=== PATIENT | male | born 1930 | race Caucasian/White ===

== ENCOUNTER 2016-12-28 17:26 | Inpatient (IN) | payer OTHER, MEDICARE ==
[~2016-12-28] VITALS: Ht 180.3 cm; Wt 85.5 kg
[~2016-12-28 17:26] MED LIST: ADVIL,NUPRIN,M200 MG PO; ALPRAZOLAM0.5 MG PO; AMBIEN5 MG PO; AMIODARONE HCL200 MG PO; ASPIR 8181 M1 PO; ASPIR-LOW81 MG PO; ATORVASTATIN CA40 MG PO; B COMPLETE1 EACH PO; CHILD ASPIRIN81 M1 PO; CO Q-1010 MG PO; COLACE100 MG PO; ELIQUIS5 MG PO; ESZOPICLONE3 MG PO; FLEXERIL10 MG PO; HYDROCODON-ACE1 EAC7 PO; HYZAAR 100-11 TABLET PO; KEFLEX500 MG PO; LEVAQUIN750 MG PO; LIPITOR40 MG PO; LISINOPRIL10 MG PO; LORAZEPAM0.5 MG PO; LOSARTAN POTASS50 MG PO; LUNESTA2 MG PO; MAGNESIUM 300300 MG PO; MECLIZINE HCL25 MG PO; MELATONIN1 MG PO; MELATONIN10 M1 PO; METOPROLOL SUCC25 MG PO; MIRTAZAPINE7.5 MG PO; NAMENDA XR14 MG PO; NAMENDA XR21 MG PO; NAMENDA XR28 MG PO; NAMENDA XR7 MG PO; NAPROXEN500 MG PO; NIFEDIPINE ER60 MG PO; NORVASC10 MG PO; ONE-A-DAY ESSE1 EAC1 PO; PROMETHAZINE HC25 M1 PO; SLEEPING MED; SODIUM CHLORIDE1 G1 PO; TOPROL XL100 MG PO; TOPROL XL25 MG PO; ULTRAM50 MG PO; VALSARTAN80 MG PO; VICODIN; VITAMIN D33000 UNIT PO; XANAX0.5 MG PO; XARELTO20 MG PO; ZOFRAN ODT8 MG PO
[2016-12-28 19:06] LABS: HEMATOCRIT 39.1 % (38.0-50.0); MCH 29.7 PG (29.0-34.0); MCHC 33.8 G/DL (30.0-36.0); MCV 88.1 FL (86-99); MEAN PLAT.VOLUME 10.3 uM^3 (9.0-12.4); PLATELET COUNT 204 K/uL (156-360); RBC DIS.WIDTH-CV 12.8 % (11.8-14.6); RBC DIS.WIDTH-SD 41.4 % (39-53); RED BLOOD COUNT 4.44 M/uL (4.00-5.50); WHITE BLOOD COUNT 8.3 K/uL (4.1-10.2)
[2016-12-28 19:22] LABS: D-DIMER ELISA 1.01 mg/L FEU (< 0.57); INTER. NORMALIZED RATIO 1.3; PROTHROMBIN TIME 13.3 (9.2-11.2); PTT 31.8 (25-32)
[2016-12-28 19:24] LABS: CHLORIDE 95 mEq/L (99-109); POTASSIUM 4.4 mEq/L (3.7-5.4); SODIUM 126 mEq/L (136-147)
[2016-12-28 19:26] LABS: GLUCOSE 94 mg/dL (70-99)
[2016-12-28 19:27] LABS: ANION GAP 8 MEQ/L (2-14)
[2016-12-28 19:29] LABS: GFR ESTIMATE (CALCULATED) > 59 mL/min/
[2016-12-28 19:30] LABS: UREA NITROGEN (BUN) 16 mg/dL (9-23)
[2016-12-28 19:31] LABS: TROP-I INTERPRETATION NEGATIVE; TROPONIN-I 0.01 ng/mL (0.0-0.30)
[2016-12-28 20:03] LABS: ADD MIUA? NO; BILIRUBIN NEGATIVE; BLOOD NEGATIVE; COLOR YELLOW ((YELLOW)); GLUCOSE (STRIP) NEGATIVE; KETONES NEGATIVE; LEUKOCYTES NEGATIVE; NITRITE NEGATIVE; PROTEIN (STRIP) NEGATIVE; SPECIFIC GRAVITY 1.011 (1.000-1.030); UCUL ADDED? NO; UROBILINOGEN 0.2 MG/DL (0.2-1.0)
[2016-12-28] MEDS ORDERED: MELATONIN3 MG PO (22:37)
[2016-12-28] MEDS ORDERED: ANTIVERT25 MG PO (22:38)
[2016-12-28] MEDS ORDERED: ELIQUIS5 MG PO (22:38)
[2016-12-28] MEDS ORDERED: LISINOPRIL10 MG PO (22:38)
[2016-12-28] MEDS ORDERED: SODIUM CHLORIDE1 G1 PO (22:40)
[2016-12-29 00:46] VITALS: BP 179/82
[2016-12-29 01:44] LABS: CHLORIDE 97 mEq/L (99-109); POTASSIUM 3.9 mEq/L (3.7-5.4); SODIUM 129 mEq/L (136-147)
[2016-12-29 01:46] LABS: GLUCOSE 92 mg/dL (70-99)
[2016-12-29 01:47] LABS: ANION GAP 6 MEQ/L (2-14)
[2016-12-29 01:50] LABS: GFR ESTIMATE (CALCULATED) > 59 mL/min/; UREA NITROGEN (BUN) 13 mg/dL (9-23)
[2016-12-29] MEDS ORDERED: SODIUM CHLORIDE1 G1 PO (01:52)
[2016-12-29 03:51] VITALS: BP 144/65
[2016-12-29 08:00] VITALS: BP 147/79
[2016-12-29] MEDS ORDERED: NIFEDIPINE ER60 MG PO (08:58)
[2016-12-29] MEDS ORDERED: ASPIRIN81 M2 PO (08:59)
[2016-12-29] MEDS ORDERED: ATORVASTATIN CA40 MG PO (09:00)
[2016-12-29] MEDS ORDERED: CO Q-10100 MG PO (09:01)
[2016-12-29] MEDS ORDERED: MELATONIN10 M1 PO (09:02)
[2016-12-29 11:31] LABS: ANION GAP 4 MEQ/L (2-14); CHLORIDE 100 MEQ/L (99-109); GFR ESTIMATE (CALCULATED) > 59 mL/min/; GLUCOSE 69 mg/dL (70-99); POTASSIUM 4.6 MEQ/L (3.7-5.4); SAMPLE HEMOLYSIS CHECK 0; SAMPLE ICTERIC CHECK 0; SAMPLE LIPEMIA CHECK 0; SODIUM 133 MEQ/L (136-147); UREA NITROGEN (BUN) 14 mg/dL (9-23)
[2016-12-29 11:47] VITALS: BP 142/76
[2016-12-29 16:55] VITALS: BP 142/85
[2016-12-29 19:00] VITALS: BP 126/57
[2016-12-30] VITALS: BP 106/58
[2016-12-30 04:00] VITALS: BP 97/56
[2016-12-30 06:43] LABS: EOSINOPHIL (%) 4.7 % (0-5); EOSINOPHIL COUNT 0.3 K/uL (0-0.3); HEMATOCRIT 38.9 % (38.0-50.0); IMMATURE GRANULOCYTE (%) 0.5 % (0.0-0.7); INSTRUMENT ABS NEUTROPHIL CT 3.4 K/uL; MCH 29.1 PG (29.0-34.0); MCHC 32.6 G/DL (30.0-36.0); MCV 89.2 FL (86-99); MEAN PLAT.VOLUME 10.5 uM^3 (9.0-12.4); MONOCYTE (%) 11.9 % (3-12); MONOCYTE COUNT 0.8 K/uL (0-0.8); NEUTROPHIL (%) 51.8 % (45-76); NEUTROPHIL COUNT 3.4 K/uL (1.8-6.4); PLATELET COUNT 201 K/uL (156-360); RBC DIS.WIDTH-SD 42.6 % (39-53); RED BLOOD COUNT 4.36 M/uL (4.00-5.50); WHITE BLOOD COUNT 6.6 K/uL (4.1-10.2)
[2016-12-30 07:14] LABS: ALKALINE PHOSPHATASE 45 IU/L (3-129); ANION GAP 6 MEQ/L (2-14); CHLORIDE 101 MEQ/L (99-109); GFR ESTIMATE (CALCULATED) > 59 mL/min/; POTASSIUM 4.2 MEQ/L (3.7-5.4); SAMPLE HEMOLYSIS CHECK 0; SAMPLE ICTERIC CHECK 0; SAMPLE LIPEMIA CHECK 0; SODIUM 133 MEQ/L (136-147); TOTAL BILIRUBIN 0.6 MG/DL (0.0-1.0); UREA NITROGEN (BUN) 15 mg/dL (9-23)
[2016-12-30 07:18] LABS: GLUCOSE 91 mg/dL (70-99)
== END 2016-12-30 11:55 | disposition home or self-care (01) | DRG 641 ==
LOC: EME 17:26 → EDOF 23:46 → 2EAST 23:46
PROVIDERS: Emergency Medicine; Hospitalist
DX: E87.1 Hypo-osmolality and hyponatremia (principal); I48.2 Chronic atrial fibrillation; I10 Essential (primary) hypertension; I25.10 Atherosclerotic heart disease of native coronary artery without angina pectoris; E78.5 Hyperlipidemia, unspecified; E83.51 Hypocalcemia; R10.9 Unspecified abdominal pain; N43.3 Hydrocele, unspecified; R29.6 Repeated falls; Z95.0 Presence of cardiac pacemaker; Z95.1 Presence of aortocoronary bypass graft; Z95.2 Presence of prosthetic heart valve
CPT/HCPCS: 70450; 71020; 74176; 78582; 80048; 80048 91; 80053; 81003; 82024 90; 82436; 82533 91; 83930; 84133; 84300; 84443; 84484; 85025; 85027; 85379; 85610; 85730; 93005; 99281; 99285; A9540; A9567; J7030

== ENCOUNTER 2017-08-01 14:29 | Emergency (ER) | payer OTHER, MEDICARE ==
[~2017-08-01] VITALS: Ht 180.3 cm; Wt 87.0 kg
[~2017-08-01 14:29] MED LIST changes: +ANTIVERT25 MG PO; +ASPIRIN81 M2 PO; +CO Q-10100 MG PO; +MELATONIN3 MG PO
[2017-08-01 15:59] LABS: HEMATOCRIT 38.6 % (38.0-50.0); MCHC 32.9 G/DL (30.0-36.0); MCV 91.3 FL (86-99); MEAN PLAT.VOLUME 10.9 uM^3 (9.0-12.4); PLATELET COUNT 192 K/uL (156-360); RBC DIS.WIDTH-CV 13.3 % (11.8-14.6); RBC DIS.WIDTH-SD 44.1 % (39-53); RED BLOOD COUNT 4.23 M/uL (4.00-5.50); WHITE BLOOD COUNT 6.5 K/uL (4.1-10.2)
[2017-08-01 16:11] LABS: CHLORIDE 105 mEq/L (99-109); POTASSIUM 4.2 mEq/L (3.7-5.4); SODIUM 139 mEq/L (136-147)
[2017-08-01 16:13] LABS: GLUCOSE 102 mg/dL (70-99)
[2017-08-01 16:14] LABS: ANION GAP 11 MEQ/L (2-14)
[2017-08-01 16:15] LABS: TOTAL BILIRUBIN 0.4 mg/dL (0.0-1.0)
[2017-08-01 16:17] LABS: ALKALINE PHOSPHATASE 55 IU/L (3-129); GFR ESTIMATE (CALCULATED) > 59 mL/min/
[2017-08-01 16:18] LABS: UREA NITROGEN (BUN) 18 mg/dL (9-23)
[2017-08-01 16:21] LABS: TROP-I INTERPRETATION NEGATIVE; TROPONIN-I 0.01 ng/mL (0.0-0.30)
[2017-08-01 19:07] LABS: TROP-I INTERPRETATION NEGATIVE; TROPONIN-I < 0.01 ng/mL (0.0-0.30)
[2017-08-01] MEDS ORDERED: ULTRAM50 MG PO (19:32)
[2017-08-01 19:59] VITALS: BP 187/91
== END 2017-08-01 20:00 | disposition home or self-care (01) ==
LOC: EME 14:29
PROVIDERS: Nurse Practitioner Family
DX: M79.602 Pain in left arm (principal); R79.89 Other specified abnormal findings of blood chemistry; I10 Essential (primary) hypertension; I48.91 Unspecified atrial fibrillation; Z79.01 Long term (current) use of anticoagulants; I25.10 Atherosclerotic heart disease of native coronary artery without angina pectoris; Z95.1 Presence of aortocoronary bypass graft; Z95.5 Presence of coronary angioplasty implant and graft; Z95.0 Presence of cardiac pacemaker; Z95.2 Presence of prosthetic heart valve
CPT/HCPCS: 70450; 71020; 80053; 83880; 84484; 85027; 93005; 93971; 99281; 99285

== ENCOUNTER 2017-09-14 17:07 | Emergency (ER) | payer OTHER, MEDICARE ==
[~2017-09-14] VITALS: Ht 180.3 cm; Wt 86.8 kg
[2017-09-14 18:56] LABS: HEMATOCRIT 41.7 % (38.0-50.0); MCH 29.1 PG (29.0-34.0); MCHC 32.6 G/DL (30.0-36.0); MCV 89.1 FL (86-99); MEAN PLAT.VOLUME 10.3 uM^3 (9.0-12.4); PLATELET COUNT 266 K/uL (156-360); RBC DIS.WIDTH-CV 13.2 % (11.8-14.6); RED BLOOD COUNT 4.68 M/uL (4.00-5.50); WHITE BLOOD COUNT 9.2 K/uL (4.1-10.2)
[2017-09-14 19:04] LABS: CHLORIDE 100 mEq/L (99-109); POTASSIUM 4.4 mEq/L (3.7-5.4); SODIUM 132 mEq/L (136-147)
[2017-09-14 19:05] LABS: GLUCOSE 98 mg/dL (70-99)
[2017-09-14 19:07] LABS: ANION GAP 8 MEQ/L (2-14)
[2017-09-14 19:09] LABS: GFR ESTIMATE (CALCULATED) > 59 mL/min/
[2017-09-14 19:10] LABS: UREA NITROGEN (BUN) 17 mg/dL (9-23)
[2017-09-14 20:41] LABS: TROP-I INTERPRETATION NEGATIVE; TROPONIN-I < 0.01 ng/mL (0.0-0.30)
[2017-09-14] MEDS ORDERED: PROAIR HFA8.5 GM IH (22:45)
[2017-09-14] MEDS ORDERED: PREDNISONE20 MG PO (22:45)
[2017-09-14 22:53] VITALS: BP 150/74
== END 2017-09-14 22:53 | disposition home or self-care (01) ==
LOC: EME 17:07
PROVIDERS: Emergency Medicine
DX: J40 Bronchitis, not specified as acute or chronic (principal); I10 Essential (primary) hypertension; I25.10 Atherosclerotic heart disease of native coronary artery without angina pectoris; A69.20 Lyme disease, unspecified; Z95.2 Presence of prosthetic heart valve; Z95.1 Presence of aortocoronary bypass graft; Z95.5 Presence of coronary angioplasty implant and graft; Z95.0 Presence of cardiac pacemaker; Z85.820 Personal history of malignant melanoma of skin; Z91.041 Radiographic dye allergy status
CPT/HCPCS: 71020; 80048; 84484; 85027; 93005; 94640; 99281; 99285; J7512

== ENCOUNTER 2017-10-06 10:27 | Emergency (ER) | payer OTHER, MEDICARE ==
[~2017-10-06] VITALS: Ht 180.3 cm; Wt 86.1 kg
[~2017-10-06 10:27] MED LIST changes: +PREDNISONE20 MG PO; +PROAIR HFA8.5 GM IH
[2017-10-06 12:52] LABS: EOSINOPHIL (%) 1.3 % (0-5); EOSINOPHIL COUNT 0.1 K/uL (0-0.3); HEMATOCRIT 40.1 % (38.0-50.0); IMMATURE GRANULOCYTE (%) 0.4 % (0.0-0.7); INSTRUMENT ABS NEUTROPHIL CT 4.5 K/uL; LYMPHOCYTE COUNT 1.4 K/uL (1.0-2.8); MCH 29.5 PG (29.0-34.0); MCHC 33.2 G/DL (30.0-36.0); MCV 88.9 FL (86-99); MONOCYTE (%) 9.9 % (3-12); MONOCYTE COUNT 0.7 K/uL (0-0.8); NEUTROPHIL (%) 67.2 % (45-76); NEUTROPHIL COUNT 4.5 K/uL (1.8-6.4); RBC DIS.WIDTH-CV 13.6 % (11.8-14.6); RBC DIS.WIDTH-SD 44.2 % (39-53); RED BLOOD COUNT 4.51 M/uL (4.00-5.50); WHITE BLOOD COUNT 6.7 K/uL (4.1-10.2)
[2017-10-06 12:54] LABS: CHLORIDE 102 mEq/L (99-109); POTASSIUM 4.5 mEq/L (3.7-5.4); SODIUM 137 mEq/L (136-147)
[2017-10-06 12:57] LABS: GLUCOSE 93 mg/dL (70-99)
[2017-10-06 12:58] LABS: ANION GAP 8 MEQ/L (2-14)
[2017-10-06 12:59] LABS: TOTAL BILIRUBIN 0.8 mg/dL (0.0-1.0)
[2017-10-06 13:00] LABS: ALKALINE PHOSPHATASE 52 IU/L (3-129); GFR ESTIMATE (CALCULATED) > 59 mL/min/ (58.99-99999)
[2017-10-06 13:01] LABS: UREA NITROGEN (BUN) 9 mg/dL (9-23)
[2017-10-06 14:02] LABS: MEAN PLAT.VOLUME 10.7 uM^3 (9.0-12.4); PLAT.SUFFICIENCY ADEQUATE
[2017-10-06 14:16] LABS: PLATELET COUNT 180 K/uL (156-360)
[2017-10-06 16:10] VITALS: BP 116/83
== END 2017-10-06 16:11 | disposition home or self-care (01) ==
LOC: EME 10:27
PROVIDERS: Emergency Medicine
DX: K59.00 Constipation, unspecified (principal); I10 Essential (primary) hypertension; I25.10 Atherosclerotic heart disease of native coronary artery without angina pectoris; Z79.82 Long term (current) use of aspirin; Z85.820 Personal history of malignant melanoma of skin; Z86.79 Personal history of other diseases of the circulatory system; Z95.2 Presence of prosthetic heart valve; Z95.1 Presence of aortocoronary bypass graft; Z95.0 Presence of cardiac pacemaker; Z95.5 Presence of coronary angioplasty implant and graft; Z91.041 Radiographic dye allergy status
CPT/HCPCS: 74022; 74176; 80053; 85025

== ENCOUNTER 2017-11-01 17:49 | Observation (INO) | payer OTHER, MEDICARE ==
[~2017-11-01] VITALS: Ht 180.3 cm; Wt 85.0 kg
[2017-11-01 18:30] LABS: HEMATOCRIT 39.7 % (38.0-50.0); HEMOGLOBIN 13.4 G/DL (12.5-16.6); MCHC 33.8 G/DL (30.0-36.0); MCV 88.8 FL (86-99); PLATELET COUNT 225 K/uL (156-360); RBC DIS.WIDTH-CV 13.6 % (11.8-14.6); RBC DIS.WIDTH-SD 44.7 % (39-53); RED BLOOD COUNT 4.47 M/uL (4.00-5.50); WHITE BLOOD COUNT 8.6 K/uL (4.1-10.2)
[2017-11-01 18:39] LABS: CHLORIDE 97 mEq/L (99-109); POTASSIUM 4.5 mEq/L (3.7-5.4); SODIUM 129 mEq/L (136-147)
[2017-11-01 18:40] LABS: GLUCOSE 124 mg/dL (70-99)
[2017-11-01 18:45] LABS: CREATININE 0.8 mg/dL (0.6-1.3); GFR ESTIMATE (CALCULATED) > 59 mL/min/ (58.99-99999); UREA NITROGEN (BUN) 15 mg/dL (9-23)
[2017-11-01 19:21] LABS: TROP-I INTERPRETATION NEGATIVE; TROPONIN-I < 0.01 ng/mL (0.0-0.30)
[2017-11-01 22:45] VITALS: BP 179/84
[2017-11-01 23:26] VITALS: BP 152/90
[2017-11-02 01:45] LABS: TROP-I INTERPRETATION NEGATIVE; TROPONIN-I < 0.01 ng/mL (0.0-0.30)
[2017-11-02 03:30] VITALS: BP 142/76
[2017-11-02 07:24] VITALS: BP 136/64
[2017-11-02 09:27] LABS: BASOPHIL (%) 0.5 % (0-1); EOSINOPHIL (%) 2.7 % (0-5); EOSINOPHIL COUNT 0.2 K/uL (0-0.3); HEMATOCRIT 41.6 % (38.0-50.0); HEMOGLOBIN 13.5 G/DL (12.5-16.6); IMMATURE GRANULOCYTE (%) 0.5 % (0.0-0.7); LYMPHOCYTE (%) 25.9 % (15-42); MCH 28.8 PG (29.0-34.0); MCHC 32.5 G/DL (30.0-36.0); MCV 88.7 FL (86-99); MONOCYTE (%) 12.5 % (3-12); MONOCYTE COUNT 0.9 K/uL (0-0.8); NEUTROPHIL (%) 57.9 % (45-76); NEUTROPHIL COUNT 4.4 K/uL (1.8-6.4); PLATELET COUNT 209 K/uL (156-360); RBC DIS.WIDTH-CV 13.5 % (11.8-14.6); RBC DIS.WIDTH-SD 44.1 % (39-53); RED BLOOD COUNT 4.69 M/uL (4.00-5.50); WHITE BLOOD COUNT 7.5 K/uL (4.1-10.2)
[2017-11-02 09:46] LABS: TROP-I INTERPRETATION NEGATIVE; TROPONIN-I 0.01 ng/mL (0.0-0.30)
[2017-11-02 09:54] LABS: ALKALINE PHOSPHATASE 50 IU/L (3-129); ALT (GPT) 13 IU/L (3-49); AST (GOT) 19 IU/L (2-34); CHLORIDE 104 MEQ/L (99-109); CREATININE 0.8 MG/DL (0.6-1.3); DIRECT BILIRUBIN 0.1 mg/dL (0.0-0.3); GFR ESTIMATE (CALCULATED) > 59 mL/min/ (58.99-99999); GLUCOSE 104 mg/dL (70-99); POTASSIUM 4.5 MEQ/L (3.7-5.4); TOTAL BILIRUBIN 0.6 MG/DL (0.0-1.0); TOTAL PROTEIN 6.5 G/DL (6.4-8.3); UREA NITROGEN (BUN) 16 mg/dL (9-23)
[2017-11-02 10:06] LABS: SODIUM 138 MEQ/L (136-147)
[2017-11-02 11:52] VITALS: BP 157/79
== END 2017-11-02 14:00 | disposition home or self-care (01) ==
LOC: EME 17:49 → 5WEST 20:41 → EDOF 20:41 → ENRESERV 20:49 → 5WEST 22:09
PROVIDERS: Hospitalist
DX: R55 Syncope and collapse (principal); I25.10 Atherosclerotic heart disease of native coronary artery without angina pectoris; I10 Essential (primary) hypertension; I47.2 Ventricular tachycardia; I42.9 Cardiomyopathy, unspecified; I49.5 Sick sinus syndrome; Z95.810 Presence of automatic (implantable) cardiac defibrillator; Z95.1 Presence of aortocoronary bypass graft; E87.1 Hypo-osmolality and hyponatremia; I35.0 Nonrheumatic aortic (valve) stenosis; I71.4 Abdominal aortic aneurysm, without rupture; Z98.890 Other specified postprocedural states; I05.9 Rheumatic mitral valve disease, unspecified; Z95.5 Presence of coronary angioplasty implant and graft; I48.0 Paroxysmal atrial fibrillation; E78.5 Hyperlipidemia, unspecified; Z95.2 Presence of prosthetic heart valve; Z90.79 Acquired absence of other genital organ(s); A69.20 Lyme disease, unspecified; Z85.820 Personal history of malignant melanoma of skin; Z79.01 Long term (current) use of anticoagulants; Z86.73 Personal history of transient ischemic attack (TIA), and cerebral infarction without residual deficits; Z91.041 Radiographic dye allergy status; Z82.49 Family history of ischemic heart disease and other diseases of the circulatory system; Z80.8 Family history of malignant neoplasm of other organs or systems
CPT/HCPCS: 70450; 80048; 80076; 81003; 84484; 85025; 85027; 93005; 99281; 99285; G0378

== ENCOUNTER 2018-03-04 08:54 | Emergency (ER) | payer OTHER, MEDICARE ==
[~2018-03-04] VITALS: Ht 180.3 cm; Wt 85.6 kg
[2018-03-04 09:29] LABS: APPEARANCE CLEAR ((CLEAR)); BILIRUBIN NEGATIVE; BLOOD NEGATIVE; COLOR YELLOW ((YELLOW)); GLUCOSE (STRIP) NEGATIVE; KETONES NEGATIVE; LEUKOCYTES NEGATIVE; NITRITE NEGATIVE; PROTEIN (STRIP) NEGATIVE; SPECIFIC GRAVITY 1.009 (1.000-1.030); UROBILINOGEN 0.2 MG/DL (0.2-1.0)
[2018-03-04 09:38] LABS: BASOPHIL (%) 0.8 % (0-1); BASOPHIL COUNT 0.1 K/uL (0-0.1); EOSINOPHIL COUNT 0.3 K/uL (0-0.3); HEMOGLOBIN 14.5 G/DL (12.5-16.6); IMMATURE GRANULOCYTE (%) 0.5 % (0.0-0.7); LYMPHOCYTE (%) 27.3 % (15-42); LYMPHOCYTE COUNT 1.8 K/uL (1.0-2.8); MCH 29.8 PG (29.0-34.0); MCHC 33.7 G/DL (30.0-36.0); MCV 88.3 FL (86-99); MONOCYTE (%) 10.9 % (3-12); MONOCYTE COUNT 0.7 K/uL (0-0.8); NEUTROPHIL (%) 56.5 % (45-76); NEUTROPHIL COUNT 3.7 K/uL (1.8-6.4); PLATELET COUNT 195 K/uL (156-360); RBC DIS.WIDTH-CV 13.2 % (11.8-14.6); RBC DIS.WIDTH-SD 42.8 % (39-53); RED BLOOD COUNT 4.87 M/uL (4.00-5.50); WHITE BLOOD COUNT 6.5 K/uL (4.1-10.2)
[2018-03-04 09:55] LABS: CHLORIDE 103 mEq/L (99-109); POTASSIUM 4.3 mEq/L (3.7-5.4); SODIUM 135 mEq/L (136-147)
[2018-03-04 09:57] LABS: GLUCOSE 113 mg/dL (70-99)
[2018-03-04 10:01] LABS: CREATININE 0.9 mg/dL (0.6-1.3); GFR ESTIMATE (CALCULATED) > 59 mL/min/ (58.99-99999)
[2018-03-04 10:02] LABS: UREA NITROGEN (BUN) 16 mg/dL (9-23)
[2018-03-04 11:33] VITALS: BP 145/64
== END 2018-03-04 11:34 | disposition home or self-care (01) ==
LOC: EME 08:54
PROVIDERS: Emergency Medicine
DX: N43.3 Hydrocele, unspecified (principal); K40.90 Unilateral inguinal hernia, without obstruction or gangrene, not specified as recurrent; I10 Essential (primary) hypertension; I25.10 Atherosclerotic heart disease of native coronary artery without angina pectoris; I25.2 Old myocardial infarction; Z95.0 Presence of cardiac pacemaker; Z95.2 Presence of prosthetic heart valve; Z95.1 Presence of aortocoronary bypass graft; Z95.5 Presence of coronary angioplasty implant and graft; Z85.820 Personal history of malignant melanoma of skin; Z91.041 Radiographic dye allergy status
CPT/HCPCS: 74176; 80048; 81003; 85025; 99281; 99285; J7030

== ENCOUNTER 2018-05-04 19:13 | Emergency (ER) | payer OTHER, MEDICARE ==
[~2018-05-04] VITALS: Ht 175.3 cm; Wt 87.5 kg
[2018-05-04 19:49] LABS: HEMATOCRIT 39.1 % (38.0-50.0); HEMOGLOBIN 13.2 G/DL (12.5-16.6); MCH 30.2 PG (29.0-34.0); MCHC 33.8 G/DL (30.0-36.0); MCV 89.5 FL (86-99); PLATELET COUNT 222 K/uL (156-360); RBC DIS.WIDTH-CV 13.8 % (11.8-14.6); RBC DIS.WIDTH-SD 44.7 % (39-53); RED BLOOD COUNT 4.37 M/uL (4.00-5.50); WHITE BLOOD COUNT 8.8 K/uL (4.1-10.2)
[2018-05-04 19:59] LABS: ALBUMIN 4.1 g/dL (3.2-4.8); CHLORIDE 104 mEq/L (99-109); POTASSIUM 4.1 mEq/L (3.7-5.4); SODIUM 136 mEq/L (136-147)
[2018-05-04 20:00] LABS: MAGNESIUM 2.3 mg/dL (1.3-2.7)
[2018-05-04 20:02] LABS: GLUCOSE 116 mg/dL (70-99); TOTAL PROTEIN 6.9 g/dL (6.4-8.3)
[2018-05-04 20:04] LABS: TOTAL BILIRUBIN 0.5 mg/dL (0.0-1.0)
[2018-05-04 20:05] LABS: ALKALINE PHOSPHATASE 51 IU/L (3-129)
[2018-05-04 20:06] LABS: CREATININE 1.1 mg/dL (0.6-1.3); GFR ESTIMATE (CALCULATED) > 59 mL/min/ (58.99-99999)
[2018-05-04 20:07] LABS: AST (GOT) 24 IU/L (2-34); UREA NITROGEN (BUN) 19 mg/dL (9-23)
[2018-05-04 20:08] LABS: ALT (GPT) 18 IU/L (3-49)
[2018-05-04 20:10] LABS: TROP-I INTERPRETATION NEGATIVE; TROPONIN-I < 0.01 ng/mL (0.0-0.30)
[2018-05-04] MEDS ORDERED: LOPRESSOR25 MG PO (22:54)
[2018-05-04 23:00] VITALS: BP 150/76
== END 2018-05-04 22:57 | disposition home or self-care (01) ==
LOC: EME 19:13
PROVIDERS: Emergency Medicine
DX: R42 Dizziness and giddiness (principal); I48.91 Unspecified atrial fibrillation; R41.0 Disorientation, unspecified; I10 Essential (primary) hypertension; I25.2 Old myocardial infarction; I25.10 Atherosclerotic heart disease of native coronary artery without angina pectoris; Z95.0 Presence of cardiac pacemaker; Z95.1 Presence of aortocoronary bypass graft; Z95.2 Presence of prosthetic heart valve; Z95.5 Presence of coronary angioplasty implant and graft; Z79.01 Long term (current) use of anticoagulants; Z85.820 Personal history of malignant melanoma of skin
CPT/HCPCS: 71046; 80048; 80053; 83735; 84484; 85027; 93005; 99281; 99285

== ENCOUNTER 2018-05-26 12:22 | Observation (INO) | payer OTHER, MEDICARE ==
[~2018-05-26] VITALS: Ht 175.3 cm; Wt 101.5 kg
[~2018-05-26 12:22] MED LIST changes: +LOPRESSOR25 MG PO
[2018-05-26 13:29] LABS: BASOPHIL (%) 0.4 % (0-1); EOSINOPHIL (%) 0.7 % (0-5); EOSINOPHIL COUNT 0.1 K/uL (0-0.3); HEMATOCRIT 39.5 % (38.0-50.0); HEMOGLOBIN 13.2 G/DL (12.5-16.6); IMMATURE GRANULOCYTE (%) 0.6 % (0.0-0.7); LYMPHOCYTE (%) 13.9 % (15-42); LYMPHOCYTE COUNT 1.3 K/uL (1.0-2.8); MCH 29.5 PG (29.0-34.0); MCHC 33.4 G/DL (30.0-36.0); MCV 88.4 FL (86-99); MONOCYTE COUNT 0.9 K/uL (0-0.8); NEUTROPHIL (%) 74.4 % (45-76); NEUTROPHIL COUNT 6.7 K/uL (1.8-6.4); PLATELET COUNT 217 K/uL (156-360); RBC DIS.WIDTH-CV 13.7 % (11.8-14.6); RBC DIS.WIDTH-SD 44.1 % (39-53); RED BLOOD COUNT 4.47 M/uL (4.00-5.50); WHITE BLOOD COUNT 9.1 K/uL (4.1-10.2)
[2018-05-26 13:39] LABS: CHLORIDE 95 mEq/L (99-109); POTASSIUM 4.8 mEq/L (3.7-5.4); SODIUM 128 mEq/L (136-147)
[2018-05-26 13:40] LABS: PTT 36.5 SEC (25-37)
[2018-05-26 13:41] LABS: GLUCOSE 99 mg/dL (70-99)
[2018-05-26 13:45] LABS: CREATININE 0.9 mg/dL (0.6-1.3); GFR ESTIMATE (CALCULATED) > 59 mL/min/ (58.99-99999)
[2018-05-26 13:46] LABS: UREA NITROGEN (BUN) 17 mg/dL (9-23)
[2018-05-26 13:51] LABS: TROP-I INTERPRETATION NEGATIVE; TROPONIN-I < 0.01 ng/mL (0.0-0.30)
[2018-05-26] MEDS ORDERED: AMIODARONE HCL200 MG PO (14:07)
[2018-05-26] MEDS ORDERED: TAMSULOSIN HCL0.4 MG PO (14:08)
[2018-05-26 14:36] LABS: INTER. NORMALIZED RATIO 1.9
[2018-05-26] MEDS ORDERED: DOXYCYCLINE HY100 MG PO (16:43)
[2018-05-26] MEDS ORDERED: CORTEF5 M1 PO (16:43)
[2018-05-26 17:17] VITALS: BP 174/81
[2018-05-26 19:30] VITALS: BP 171/77
[2018-05-26 20:43] VITALS: BP 177/84
[2018-05-27 00:15] VITALS: BP 157/74
[2018-05-27 03:57] VITALS: BP 142/75
[2018-05-27 05:26] LABS: HEMATOCRIT 41.1 % (38.0-50.0); HEMOGLOBIN 13.6 G/DL (12.5-16.6); MCH 29.5 PG (29.0-34.0); MCHC 33.1 G/DL (30.0-36.0); MCV 89.2 FL (86-99); PLATELET COUNT 215 K/uL (156-360); RBC DIS.WIDTH-CV 13.6 % (11.8-14.6); RBC DIS.WIDTH-SD 44.3 % (39-53); RED BLOOD COUNT 4.61 M/uL (4.00-5.50); WHITE BLOOD COUNT 7.9 K/uL (4.1-10.2)
[2018-05-27 05:42] LABS: TROP-I INTERPRETATION NEGATIVE; TROPONIN-I < 0.01 ng/mL (0.0-0.30)
[2018-05-27 05:48] LABS: CHLORIDE 98 MEQ/L (99-109); CREATININE 0.9 MG/DL (0.6-1.3); GFR ESTIMATE (CALCULATED) > 59 mL/min/ (58.99-99999); GLUCOSE 84 mg/dL (70-99); POTASSIUM 4.5 MEQ/L (3.7-5.4); SODIUM 132 MEQ/L (136-147); UREA NITROGEN (BUN) 15 mg/dL (9-23)
[2018-05-27 08:33] VITALS: BP 149/69
[2018-05-27] MEDS ORDERED: SODIUM CHLORIDE1 G1 PO (11:09)
== END 2018-05-27 12:12 | disposition home or self-care (01) ==
LOC: EME 12:22 → EDOF 15:17 → ENRESERV 15:19 → 4SOUTH 17:06 → ENPENDDIS 05-27 11:49 → 4SOUTH 05-27 12:12
PROVIDERS: Emergency Medicine; Internal Medicine; Internal Medicine Cardiovascular Disease
DX: E87.1 Hypo-osmolality and hyponatremia (principal); R42 Dizziness and giddiness; Z91.14 Patient's other noncompliance with medication regimen; Z86.19 Personal history of other infectious and parasitic diseases; I47.2 Ventricular tachycardia; Z95.810 Presence of automatic (implantable) cardiac defibrillator; I49.5 Sick sinus syndrome; I48.0 Paroxysmal atrial fibrillation; Z79.01 Long term (current) use of anticoagulants; I71.4 Abdominal aortic aneurysm, without rupture; I35.1 Nonrheumatic aortic (valve) insufficiency; I48.92 Unspecified atrial flutter; I42.9 Cardiomyopathy, unspecified; I25.10 Atherosclerotic heart disease of native coronary artery without angina pectoris; Z95.2 Presence of prosthetic heart valve; Z91.041 Radiographic dye allergy status; Z95.1 Presence of aortocoronary bypass graft; I10 Essential (primary) hypertension; Z85.820 Personal history of malignant melanoma of skin
CPT/HCPCS: 71045; 80048; 83880; 84484; 85025; 85027; 85610; 85730; 93005; 99281; 99285; G0378